=== PATIENT | male | born 1970 ===

== ENCOUNTER 2017-09-12 03:04 | Emergency (ER) | payer SELFPAY ==
[2017-09-12] MEDS ORDERED: Sodium Chloride 0.9% 1,000 ML IV SCH (03:30)
[2017-09-12] MEDS ORDERED: Sodium Chloride 0.9% 1,000 ML ONE (03:48)
[2017-09-12 04:12] LABS: BASO % 0.3 % (0.0-2.0); EOS % 0.2 % (0.0-4.0); LYMPH # 1.2 K/uL (1.0-4.3); LYMPH % 11.2 % (20.0-40.0); MEAN CELL VOLUME 86.6 fL (80.0-94.0); MEAN CORPUSCULAR HEMOGLOBIN 28.9 pg (27.0-31.0); MEAN CORPUSCULAR HGB CONC 33.3 g/dL (33.0-37.0); MEAN PLATELET VOLUME 8.2 fL (7.2-11.7); MONO # 0.6 K/uL (0.0-0.8); MONO % 5.9 % (0.0-10.0); NEUT % 82.4 % (50.0-75.0); RBC 5.55 Mil/uL (4.40-5.90); RED CELL DISTRIBUTION WIDTH 13.7 % (11.5-14.5); WHITE BLOOD COUNT 10.9 K/uL (4.8-10.8)
[2017-09-12 04:18] LABS: URINE AMORPHOUS SEDIMENT RARE /ul (<OCC); URINE BILIRUBIN NEGATIVE (NEGATIVE); URINE BLOOD NEGATIVE (NEGATIVE); URINE CLARITY Hazy (Clear); URINE COLOR Yellow (YELLOW); URINE GLUCOSE (UA) NORMAL (Normal); URINE LEUKOCYTE ESTERASE NEG Leu/uL (Negative); URINE PROTEIN NEGATIVE (NEGATIVE); URINE UROBILINOGEN NORMAL mg/dL (0.2-1.0)
[2017-09-12 04:46] LABS: ALB/GLOB RATIO 1.5 (1.0-2.1); ALBUMIN 4.3 g/dL (3.5-5.0); ALT/SGPT 36 U/L (21-72); AST/SGOT 39 U/L (17-59); BLOOD UREA NITROGEN 9 mg/dL (9-20); CALCIUM 9.1 mg/dl (8.6-10.4); GFR AFRICAN-AMERICAN > 60; GFR NON-AFRICAN AMERICAN > 60; LIPASE 69 U/L (23-300)
[2017-09-12 04:55] VITALS: RESP 18
--- NOTE | 2017-09-12 05:33 | C.PDOC ---
Time Seen by Provider: 09/12/17 03:10 Chief Complaint (Nursing): Back Pain Past Medical History Vital Signs: Last Vital Signs Temp 98.6 F 09/12/17 03:19 Pulse 106 H 09/12/17 04:54 Resp 18 09/12/17 04:54 BP 159/107 H 09/12/17 04:54 Pulse Ox 100 09/12/17 04:54 - Social History Hx Alcohol Use: Yes Hx Substance Use: No - Immunization History Hx Tetanus Toxoid Vaccination: No Hx Influenza Vaccination: No Hx Pneumococcal Vaccination: No ED Course And Treatment - Laboratory Results Result Diagrams: 09/12/17 04:09 09/12/17 04:09 O2 Sat by Pulse Oximetry: 100 Disposition - Disposition Referrals: Chuck Guillen MD [Staff Provider] - Disposition: HOME/ ROUTINE Disposition Time: 05:30 Condition: STABLE Additional Instructions: Follow up with the urologist in 1-2 days. Return to ER if symptoms persist or worsen. Instructions: Kidney Stones (DC) Print Language: KYRGYZ
--- NOTE | 2017-09-12 05:49 | C.PDOC ---
History Of Present Illness 46 year old male presents to the ER with a complaint of intermittent right sided back pain that began last night. Patient took flagyl for the symptoms. Patient reports no change of pain with movement or radiation of pain. Denies hematuria, fever, vomiting, or Hx of similar symptoms. Time Seen by Provider: 09/12/17 03:10 Chief Complaint (Nursing): Back Pain History Per: Patient History/Exam Limitations: no limitations Onset/Duration Of Symptoms: Hrs, Intermittent Episodes Current Symptoms Are (Timing): Still Present Quality Of Discomfort: Unable To Describe Previous Symptoms: None Associated Symptoms: None Exacerbating Factor(s): Nothing Recent travel outside of the [place]: No Past Medical History Reviewed: Historical Data, Nursing Documentation, Vital Signs Vital Signs: Last Vital Signs Temp 98.2 F 09/12/17 06:16 Pulse 97 H 09/12/17 06:16 Resp 18 09/12/17 06:16 BP 148/97 H 09/12/17 06:16 Pulse Ox 100 09/12/17 06:50 Family History: States: No Known Family Hx - Social History Hx Alcohol Use: Yes Hx Substance Use: No - Immunization History Hx Tetanus Toxoid Vaccination: No Hx Influenza Vaccination: No Hx Pneumococcal Vaccination: No Review Of Systems Constitutional: Negative for: Fever, Chills Gastrointestinal: Negative for: Nausea, Vomiting Genitourinary: Negative for: Dysuria, Hematuria Musculoskeletal: Positive for: Back Pain Physical Exam - Physical Exam Appears: Non-toxic, No Acute Distress Skin: Normal Color, Warm, Dry Head: Atraumatic, Normacephalic Eye(s): bilateral: Normal Inspection, EOMI Nose: Normal Oral Mucosa: Moist Neck: Normal ROM, Supple Chest: Symmetrical, No Tenderness Cardiovascular: Rhythm Regular Respiratory: Normal Breath Sounds, No Rales, No Rhonchi, No Wheezing Gastrointestinal/Abdominal: Soft, No Tenderness Back: CVA Tenderness (Right), No Vertebral Tenderness Extremity: Normal ROM (x4) Neurological/Psych: Oriented x3, Normal Speech ED Course And Treatment - Laboratory Results Result Diagrams: 09/12/17 04:09 09/12/17 04:09 O2 Sat by Pulse Oximetry: 100 (Room air) Pulse Ox Interpretation: Normal - CT Scan/US CT abd/pel Other Rad Studies (CT/US): Read By Radiologist, Radiology Report Reviewed CT/US Interpretation: EXAM: CT Abdomen and Pelvis Without Intravenous Contrast. CLINICAL HISTORY: 46 years old, male; Pain; Abdominal pain; Flank; Other: Bilateral. TECHNIQUE: Axial computed tomography images of the abdomen and pelvis without intravenous. contrast. All CT scans at this facility use at least one of these dose optimization techniques: automated exposure control; mA and/or kV adjustment per patient size (includes targeted exams. where dose is matched to clinical indication); or iterative reconstruction. Coronal and sagittal. reformatted images were created and reviewed. COMPARISON: No relevant prior studies available. FINDINGS: Lung bases: Unremarkable. No mass. No consolidation. ABDOMEN: Liver: Unremarkable. Gallbladder and bile ducts: Unremarkable. No calcified stones. No ductal dilation. Pancreas: Unremarkable. No ductal dilation. Spleen: Unremarkable. No splenomegaly. Adrenals: Unremarkable. No mass. Kidneys and ureters: Hydronephrosis right kidney due to an obstructing 5 mm stone in the right UVJ. Nonobstructing stones in each kidney. No stones in the left ureter and no hydronephrosis on the. left. Stomach and bowel: Unremarkable. No obstruction. No mucosal thickening. PELVIS: Appendix: Normal appendix. Bladder: Unremarkable. No stones. Reproductive: Unremarkable as visualized. ABDOMEN and PELVIS: Intraperitoneal space: Unremarkable. No free air. No significant fluid collection. Bones/joints: No acute fracture. No dislocation. Soft tissues: Unremarkable. Vasculature: Unremarkable. No abdominal aortic aneurysm. Lymph nodes: Unremarkable. No enlarged lymph nodes. IMPRESSION: Hydronephrosis right kidney due to an obstructing 5 mm stone in the right UVJ. Progress Note: CT abd/pel, blood work, and urinalysis ordered. IV fluids and toradol administered. On reevaluation, patient is resting comfortably in the ER in no acute distress, vitals are stable. Tolerating PO. Patient reports improvement of pain, CT results discussed with patient, advised to follow up with urology and return precautions given. [employer] Engineer used to ensure understanding. Disposition - Disposition Referrals: Chuck Guillen MD [Staff Provider] - Disposition: HOME/ ROUTINE Disposition Time: 05:49 Condition: STABLE Additional Instructions: Follow up with the urologist in 1-2 days. Return to ER if symptoms persist or worsen. Prescriptions: Naproxen [Naprosyn] 1 tab PO BID PRN #20 tab PRN Reason: Pain oxyCODONE/Acetaminophen [Percocet 5/325 mg Tab] 1 tab PO QID PRN #20 tab PRN Reason: Pain Tamsulosin [Flomax] 0.4 mg PO DAILY #10 cap Instructions: Kidney Stones (DC) Forms: [employer] (Slovenian) Print Language: SERBIAN - Clinical Impression Clinical Impression: Renal colic, Nephrolithiasis - PA / VICE PRESIDENT OF SOFTWARE ENGINEERING / Resident Statement MD/DO has reviewed & agrees with the documentation as recorded. - Scribe Statement The provider has reviewed the documentation as recorded by the Scribe Sebastian Roca All medical record entries made by the Svitlanaibfelicitas were at my direction and personally dictated by me. I have reviewed the chart and agree that the record accurately reflects my personal performance of the history, physical exam, medical decision making, and the department course for this patient. I have also personally directed, reviewed, and agree with the discharge instructions and disposition.
[2017-09-12 06:19] VITALS: BP 148/97; PULSE 97; TEMP 98.2
[2017-09-12 06:48] VITALS: O2SAT 100
--- NOTE | 2017-09-12 08:48 | CT ---
Date of service: 09/12/2017 PROCEDURE: CT Abdomen and Pelvis without intravenous contrast HISTORY: Right flank pain. COMPARISON: None. TECHNIQUE: Multiple contiguous axial images were performed through the abdomen and pelvis without the use of intravenous contrast. Subsequently, sagittal and coronal reformatted images were obtained. Radiation dose: Total exam DLP = 399 mGy-cm. This CT exam was performed using one or more of the following dose reduction techniques: Automated exposure control, adjustment of the mA and/or kV according to patient size, and/or use of iterative reconstruction technique. FINDINGS: LOWER THORAX: Unremarkable. LIVER: Unremarkable. No gross lesion or ductal dilatation. GALLBLADDER AND BILE DUCTS: Unremarkable. PANCREAS: Unremarkable. No gross lesion or ductal dilatation. SPLEEN: Unremarkable. ADRENALS: Unremarkable. No mass. KIDNEYS AND URETERS: Hydronephrosis of the right kidney secondary to an obstructing 5 millimeter calculus in the right ureterovesicular junction. Additional nonobstructing calculi in each kidney. For example, in the upper and lower poles of the right kidney, there are 5 and 6 millimeter calculi respectively. VASCULATURE: Unremarkable. No aortic aneurysm. BOWEL: Unremarkable. No obstruction. No gross mural thickening. APPENDIX: Unremarkable. Normal appendix. PERITONEUM: Unremarkable. No free fluid. No free air. LYMPH NODES: Unremarkable. No enlarged lymph nodes. BLADDER: Unremarkable. REPRODUCTIVE: Unremarkable. BONES: Degenerative changes in the spine. OTHER FINDINGS: None. IMPRESSION: Hydronephrosis of the right kidney secondary to an obstructing 5 millimeter calculus in the right ureterovesicular junction. Additional nonobstructing calculi in each kidney. These findings were preliminarily reported at 5:17 a.m. on 09/12/[address] Ryan Haro from [facility].
== END 2017-09-12 06:22 | disposition home or self-care (01) ==
LOC: C.ER 03:04
DX: N20.0 Calculus of kidney (principal)
CPT/HCPCS: 74176; 80053; 81001; 83690; 85025; 87086; 96361; 96374; 99285; J1885; J7030